=== PATIENT | female | born 1995 | race Caucasian/White ===

== ENCOUNTER 2019-06-05 20:00 | Inpatient (IN) | payer OTHER ==
[~2019-06-05] VITALS: Ht 165.1 cm; Wt 67.6 kg
[2019-06-05 20:03] VITALS: BP 126/86
--- NOTE | 2019-06-05 20:10 | NUR ---
Sitter at bedside pt on 1;1 observation, her sister also at bedside.
[2019-06-05 20:28] LABS: URINE BILIRUBIN NEGATIVE (Negative); URINE BLOOD NEGATIVE (Negative); URINE CLARITY CLEAR; URINE COLOR YELLOW; URINE GLUCOSE-RANDOM* NEGATIVE (Negative); URINE KETONES TRACE (Negative); URINE LEUKOCYTES-REFLEX NEGATIVE (Negative); URINE NITRITE-REFLEX NEGATIVE (Negative); URINE PROTEIN (DIPSTICK) NEGATIVE (Negative); URINE SPECIFIC GRAVITY >= 1.030 (1.005-1.035); URINE UROBILINOGEN 0.2 E.U./dl (0.2-1.0)
[2019-06-05 20:36] LABS: AMP/METHAMP Negative (Negative); BARBITURATES Negative (Negative); BENZODIAZEPINES Negative (Negative); COCAINE Negative (Negative); METHADONE Negative (Negative); OPIATES Negative (Negative); PCP Negative (Negative)
[2019-06-05 20:54] LABS: HEMATOCRIT 40.6 % (37.0-47.0); HEMOGLOBIN 13.2 gm/dL (12.0-15.0); MCH 28.3 pg (26.0-34.0); MCHC 32.6 g/dL (28.0-37.0); MCV 86.9 fL (80.0-100.0); RBC 4.68 mil/uL (4.20-5.00); WBC 6.9 thou/uL (4.0-11.0)
[2019-06-05 21:10] LABS: ALBUMIN 4.6 g/dL (3.4-5.0); DIRECT BILIRUBIN < 0.1 mg/dL (<0.1-0.3); SGOT 28 U/L (15-37); SGPT 20 U/L (30-65); TOTAL BILIRUBIN 0.4 mg/dL (<0.1-1.0); TOTAL PROTEIN 7.8 g/dL (6.4-8.2)
[2019-06-05 21:18] LABS: ANION GAP 12 mmol/L (7-16); BUN 8 mg/dL (7-18); CALCIUM 9.5 mg/dL (8.5-10.1); CHLORIDE 104 mmol/L (98-107); CO2 21 mmol/L (21-32); CREATININE 0.9 mg/dL (0.6-1.0); GLUCOSE 141 mg/dL (74-106); POTASSIUM 3.8 mmol/L (3.5-5.1); SALICYLATE < 2.8 mg/dL (2.8-20.0); SODIUM 137 mmol/L (136-145)
--- NOTE | 2019-06-05 21:52 | NUR ---
CALLED POISON CONTROL AND REPORTED THAT PT STATES SHE TOOK AROUND 30 TABS OF TYLENOL 500MG EACH TAB. SPOKE TO TEZ JAMES. SHE SAID SHE HAD SPOKEN TO DR STANTON JUST PRIOR ABOUT THIS PT.
--- NOTE | 2019-06-05 23:25 | NUR ---
DR STANTON TALKED WITH BOTH SISTERS REGARDING THE DANGER OF ACETAMINOPHEN OVERDOSE. REQUESTED THAT THEY FILL OUT AFFIDAVIT. THUS FAR, THEY HAVE DECLINED.
[2019-06-05 23:47] VITALS: BP 121/64
[2019-06-06 00:13] VITALS: BP 102/56
[2019-06-06 03:28] VITALS: BP 107/60
[2019-06-06 08:28] LABS: INR 1.1; PROTIME 11.8 Seconds (9.3-11.4)
[2019-06-06 08:35] LABS: ALBUMIN 3.4 g/dL (3.4-5.0); CALCIUM 8.4 mg/dL (8.5-10.1); CREATININE 0.7 mg/dL (0.6-1.0); POTASSIUM 3.3 mmol/L (3.5-5.1); TOTAL BILIRUBIN 0.4 mg/dL (<0.1-1.0); TOTAL PROTEIN 6.5 g/dL (6.4-8.2)
--- NOTE | 2019-06-06 08:39 | NUR ---
ASSESSMENTS CHARTED, MEDS GIVEN CHARTED. ROOM WAS STRIPPED OF HAZZARDS AND SITTER HAD ARRIVED PRIOR TO PATIENT ARRIVING ON THE UNIT. PATIENT ARRIVED ON UNIT AROUND MIDNIGHT VERY SLEEPY. NEEDED TO BE AROUSED INBETWEEN QUESTIONS DURNG ADMISSION. ALERT X 4. SR/SA DURING SHIFT. ON ROOM AIR. NAUSEA AND DRY HEAVES AFTER ARRIVING ON UNIT, SHE DID NOT ACTUALLY VOMIT WHILE ON UNIT. ONCE ADMITTED, PATIENT SLEPT THE REMAINDER OF THE SHIFT. FAMILY WAS AT THE BEDSIDE DURING SHIFT. DENIED PAIN. FALL PRECAUTIONS IN PLACE DURING SHIFT. DOCTORS AFFIDAVIT IS IN THE CHART. CONSULT TO PSYC HAS BEEN CALLED.
--- NOTE | 2019-06-06 10:38 | NUR ---
met with patient and her sister at bedside. caset requested to sp with patient alone but sister and patient wanted her present. patient recounts she just broke up with boyfriend and upset. she ingested pills and reports she then realized the gravity of what she did. she tried to induce vomiting and called her sister immediately. she works at [employer]. she has 3 siblings here in [facility]. Her parents are missionaries, they are in [place]. Sister reports they are working on their visas to come to [place]. Sister reports she sp with parents prior to coming to ER and Sister updating parents. Patient reports her siblings here are supportive. [facility] for [facility] herself or thoughts of harm. Await psych evalauation.
[2019-06-06 13:18] LABS: APTT 27.5 Seconds (24.5-32.8); INR 1.2; PROTIME 12.4 Seconds (9.3-11.4)
[2019-06-06 17:04] LABS: SGOT 16 U/L (15-37); SGPT 15 U/L (30-65)
[2019-06-06 17:07] LABS: APTT 27.2 Seconds (24.5-32.8); INR 1.2; PROTIME 12.4 Seconds (9.3-11.4)
--- NOTE | 2019-06-06 18:29 | NUR ---
ASSESSMENT CHARTED. PT ALERT AND ORIENTED. VSS. DENIED HAVING PAIN OR DISCOMFORT. SEATER AT THE BEDSIDE. SEEN BY DR. RICE. FAMILY AT THE BEDSIDE. POISON CONTROL UPDATED ON PT LAB RESULTS. WILL CONTINUE TO MONITOR.
[2019-06-06 19:56] VITALS: BP 120/56
--- NOTE | 2019-06-06 23:51 | NUR ---
ASSUMED PT CARE AT 1900. VSS. PT A&0X4. ASSESSMENTS AND MEDS GIVEN DOCUMENTED. PT STATED FEELING MUCH BETTER AND PROMISED NOT TO REPEAT OCCURENCE. REFFEREAL FOR BEATRICE HOOK PUT IN. PT IS STABLE, 2 SISTERS IN THE ROOM. PT IS STABLE, WAS TRANSERED OUT TO 4S AT 1140PM THIS EVENING. TELE BOX OFF, CHARTED HANDED OFF TO 4S NURSE.
--- NOTE | 2019-06-07 01:18 | NUR ---
PT TRANSFRED FROM [facility], A&OX4 DENIES PAIN. IV INTACT IN RT AC AND FLUIDS INFUSING. SISTERS AT BEDSIDE FOR THE NIGHT. 1.1 SITTER CASE D/C SKIN INTACT AND CALL LIGHT IN PLACE WILL CONT TO MONITOR.
[2019-06-07 05:54] VITALS: BP 125/76
[2019-06-07 06:22] LABS: ALBUMIN 3.2 g/dL (3.4-5.0); CALCIUM 8.6 mg/dL (8.5-10.1); CREATININE 0.8 mg/dL (0.6-1.0); POTASSIUM 3.7 mmol/L (3.5-5.1); TOTAL BILIRUBIN 0.2 mg/dL (<0.1-1.0); TOTAL PROTEIN 5.6 g/dL (6.4-8.2)
[2019-06-07 07:30] VITALS: BP 116/63
[2019-06-07 10:58] VITALS: BP 116/63
--- NOTE | 2019-06-07 14:28 | NUR ---
Received awake on bed. Due medications given as prescribed- due Flu vaccine given- administration card given to patient. A+Ox4. On room air. Vital signs stable. 1:1 sitter discontinued, with patient's 2 sisters at bedside. On regular diet- tolerating well; no nausea, no vomiting or abdominal pain noted. With NS at 125cc/hr, infusing well at R AC. No complaints of pain made. No suicidal ideations noted. No aggression or depression noted. Pt seen by Dr Ha- discharge orders made. Read thru Dr Campoverde's note- no objection to discharge once medically stable, follow up with psychotherapy and number included in discharge packet. Pt asked for doctor's note for work- Dr Ha informed and said to have the patient/relative drop by his office to pick and shovel worker the note- Pt's sister got note from Dr Ha's office. Pt requested to talk to CM re: senior financial consultant for hospital bill, IRMA Aguilar talked to pt. Verified from CM if pt needs to sign any document prior to d/c since will pay for her own bill- no need to sign anything, documents given to pt by CM. IV discontinued. Pt brought down via wheelchair with her personal belongings.
--- NOTE | 2019-06-07 14:29 | NUR ---
Following for d/c planning. Pt and family members had questions about financial asssistance paperwork. Pt works, but missed the deadline to sign up for her insurance with her employer. Pt said she would check with employer to see if she could still sign up. Pt has paperwork for financial assistance and will complete and mail in to address listed. No other needs identified. Pt has name of counselor for follow up.
[2019-06-09 16:08] LABS: TRICYCLIC (TCA) CONFIRMATION Negative ng/mL (Cutoff=100)
== END 2019-06-07 13:00 | disposition home or self-care (01) | DRG 918 ==
LOC: ER 20:00 → 2N 21:44 → EROBS 21:44 → 2N 23:56 → 4S 06-07 00:04 → ENTRNSPT 06-07 12:48 → EDTRNSPTSTS 06-07 12:49 → 4S 06-07 13:00
PROVIDERS: Emergency Medicine; Nurse Practitioner Acute Care; ADMIT Hospitalist
DX: T39.1X1A Poisoning by 4-Aminophenol derivatives, accidental (unintentional), initial encounter (principal); F32.9 Major depressive disorder, single episode, unspecified; F43.20 Adjustment disorder, unspecified; Z88.8 Allergy status to other drugs, medicaments and biological substances; Y92.89 Other specified places as the place of occurrence of the external cause; Z91.040 Latex allergy status
CPT/HCPCS: 10081; 10194